=== PATIENT | female | born 1965 | race Caucasian/White ===

== ENCOUNTER 2016-08-04 18:34 | Emergency (ER) | payer OTHER ==
--- NOTE | 2016-08-04 19:58 | DIAGNOSTIC IMAGING REPORT ---
PROCEDURE: XR CHEST 2 VIEW INDICATION: Fever. Cough. History of pulmonary nodules. TECHNIQUE: PA and lateral views. COMPARISON: Compared to chest x-ray and CTA thorax on 02/08/2015. FINDINGS: Findings suggest mild parenchymal changes in the right mid lower lung. Left lung is clear. No definite lung nodules are identified. Heart and mediastinum are normal. Thorax is normal. IMPRESSION: 1. Findings suggest mild parenchymal changes in the right mid lower lung suspicious for pneumonia (e.g., bacterial, Mycoplasma). 2. No definite lung nodules are identified at this time. Nevertheless, early follow-up chest x-ray after the patient's acute illness (3-4 weeks) is recommended to confirm resolution of these changes. 3. Findings discussed with RENAN Lorenzana.
--- NOTE | 2016-08-04 21:04 | ED ORDER SUMMARY ---
..... Patient: MARCI LARSON OrderSheet [facility] VisitID: [id number] [place] [address] 51y, F Registration Date/Time: 08/04/2016 ORDER SHEET Weight: 68.0 kg (stated) Allergies: Erythromycin, Morphine and Related GENERAL ORDERS: Chest 2V Urgent (18:54 08/04/2016 EKoroleva P.A.-C) (Ack 18:56 KHoerner) (19:31 MCampbell) CBC w Diff Urgent (18:55 08/04/2016 EKoroleva P.A.-C) (Ack 18:56 KHoerner) (19:31 DDavis R.N.) BMP Urgent (18:55 08/04/2016 EKoroleva P.A.-C) (Ack 18:56 KHoerner) (19:31 DDavis R.N.) PCT (Procalcitonin) Urgent (18:55 08/04/2016 EKoroleva P.A.-C) (Ack 18:56 KHoerner) (19:31 DDavis R.N.) Lactate, Serum Urgent (18:55 08/04/2016 EKoroleva P.A.-C) (Ack 18:56 KHoerner) (19:31 DDavis R.N.) UA-Culture if indicated Urgent (18:59 08/04/2016 JBoardley R.N. per protocol) (18:59 JBoardley R.N.) Vitals (Repeat) (including temp please) (20:34 08/04/2016 EKoroleva P.A.-C) (20:35 SRedmond) EKG - ER Stat (20:45 08/04/2016 EKoroleva P.A.-C) (20:49 SRedmond) MEDICATION ORDERS: DuoNeb Neb Tx 1 unit dose (NOW) (18:54 08/04/2016 EKoroleva P.A.-C) (Ack 19:13 CHagerty ER Off Premise Service Representative) (19:32 DDavis R.N.) Tylenol PO 650 mg (NOW) (18:54 08/04/2016 EKoroleva P.A.-C) (Ack 18:55 JBoardley R.N.) (18:59 JBoardley R.N.) Levaquin PO 750 mg (NOW) (20:32 08/04/2016 EKoroleva P.A.-C) (20:44 DDavis R.N.) IV FLUIDS: IV NS : initial bolus 1000 mL (1000 mL/hr), then 1000 mL/hr for X1 (NOW); Nitish (18:55 08/04/2016 EKoroleva P.A.-C) (Ack 18:55 JBoardley R.N.) (19:31 DDavis R.N.) IV NS : initial bolus none -, then 1000 mL/hr (NOW); Stat (20:02 08/04/2016 DDavis R.N. verbal order read back to EKoroleva P.A.-C) (20:03 DDavis R.N.) ORDER SHEET NOTES: [Electronically signed by Jerardo Rocha R.N. (21:45 08/04/2016)] [Electronically signed by Jennifer BellAJessica-C (22:03 08/04/2016)] [Electronically locked/signed by Jerardo Rocha R.N. (21:45 08/04/2016)]
--- NOTE | 2016-08-04 21:04 | ED NURSING NOTES ---
Clinical Report - Nurses [facility] [address] [place] [address] 08/04/2016 18:36 Patient: MARCI LARSON TRIAGE Triage time 18:43. Acuity: LEVEL 4. Chief Complaint: FEVER and CHILLS. 18:44 08/04/16. 18:44 08/04/16. Alert. No acute distress. SEPSIS SCREEN: Sepsis Screen. Negative (no infection suspected/documented). STACIE COMA SCORE: [place] Coma Scale: 15- eyes open spontaneously (4); best verbal response- oriented x 4 (5); best motor response- obeys commands (6). --18:48 Samuel Dempsey R.N. 18:43 08/04/16. BP: 107/59. HR: 88. RR: 18. O2 saturation: 91% on room air. Temp: 102.7 F (oral). --18:48 Samuel Dempsey R.N. Acuity: LEVEL 3. --18:49 Samuel Dempsey R.N. Weight: 68 kg stated. Height/Length: 65 inches Per Patient. BMI: 25. --18:44 Samuel Dmepsey R.N. Medications Paxil Oral 40 mg. Percocet Oral 10/325 mg, 4x a day. --18:47 Samuel Dempsey R.N. ClonazePAM Oral (Tablet 1 mg), as needed. --19:04 Samuel Dempsey R.N. Medication/allergy information source: the patient. --18:48 Samuel Dempsey R.N. Allergies Erythromycin. Morphine and Related. --18:47 Samuel Dempsey R.N. History Arrived by private vehicle. Historian: patient. Accompanied by family. Primary physician ([facility]). 18:47 08/04/16. ( 1 week). 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 SOCIAL HX: Current every day heavy tobacco smoker (cigarette)- 1 pack per day. No alcohol use or drug use. No infectious disease exposure. ABUSE ASSESSMENT: No report of abuse. FALL RISK ASSESSMENT: Fall risk assessment completed. No fall risk identified. NUTRITIONAL RISK ASSESSMENT: The nutritional risk assessment revealed no deficiencies. FUNCTIONAL ASSESSMENT: Functional assessment: no impairments noted. LEARNING NEEDS ASSESSMENT: The learning needs assessment revealed no barriers. SKIN INTEGRITY ASSESSMENT: Skin integrity risk assessment completed. No skin integrity risk identified. --18:48 Samuel Dempsey R.N. PAST MEDICAL HX: Immunizations not up to date. --18:48 Samuel Dempsey R.N. PAST MEDICAL HX: The patient has had a hysterectomy. --18:48 Samuel Dempsey R.N. PROBLEMS: Pulmonary Nodule. Chest Wall Pain. Heart Disease. Ovarian Cyst. Abdominal Pain. Depression. Anxiety Reaction. --18:48 Samuel Dempsey R.N. ADDITIONAL SURGERIES: Appendectomy. Hysterectomy. Knee Surgery. --18:48 Samuel Dempsey R.N. Assessment 18:47 08/04/16. --18:48 Samuel Dempsey R.N. Interventions 18:44 08/04/16. 18:47 08/04/16. ID and allergy band on patient. To treatment room. --18:48 Samuel Dempsey R.N. PHYSICAL ASSESSMENT 18:48 08/04/16. Ambulatory to room. GENERAL / NEURO / PSYCH: Alert. Oriented X 4. Appears in pain. RESPIRATORY: Respirations not labored. CVS: Capillary refill less than 2 seconds. SKIN: Skin is diaphoretic. --18:48 Samuel Dempsey R.N. ( skin hot, pt states having cough for 1 week, states having fevers, and having family members with similar symptoms). GENERAL / NEURO / PSYCH: Alert. Oriented X 4. HEENT: Mucous membranes are pink. RESPIRATORY: The patient can speak in full sentences. Expiratory bilateral wheezes diffusely. CVS: Capillary refill less than 2 seconds. SKIN: Skin is dry. --19:34 Jerardo Rocha R.N. ( inspiratory and expiratory rhonchi). --19:34 Jerardo Rocha R.N. 20:41 08/04/16. BP: 94/56 taken on the left arm, via an automated monitor, while sitting. HR: 99 (regular). RR: 20 (regular and unlabored). O2 saturation: 92% on room air. Temp: 98.8 F (axillary). Additional comments: patient discovered to be on room air, someone previously turned O2 off. --20:43 Jerardo Rocha R.N. NURSING PROGRESS NOTES 18:49 08/04/16. The plan of care for this patient has been created. Pulse oximeter and NIBP monitor placed on patient; monitor alarms on. Patient gowned. Head of bed elevated. Reassurance given. Call light placed in reach. Side rails up x 2. Bed placed in lowest position. Brakes of bed on. Patient ready for evaluation- chart flagged. --18:49 Samuel Dempsey R.N. 18:57 08/04/16. Patient ID band checked for patient name and birthdate: patient confirmed. Patient verbalized understanding. Clean catch urine collected with return of yellow-colored clear urine; sample sent to lab for urinalysis. Specimen labeled in the presence of the patient. --18:57 Lillie Oviedo R.N. 18:58 08/04/16. BP: 100/50. HR: 90. RR: 18. O2 saturation: 95% on room air. --18:58 Samuel Dempsey R.N. 18:58 08/04/16. --18:58 Samuel Dempsey R.N. 18:59 08/04/2016 Tylenol (Acetaminophen) PO 650 mg given. Allergies verified and confirmed 5 rights. --18:59 Samuel Dempsey R.N. 18:59 08/04/16. Patient transported to radiology by stretcher with tech. --18:59 Samuel Dempsey R.N. 19:05 08/04/16. ( Pt took 0.5 mg Clonazepam (home med) as pt states she is anxious prior to IV start. Would like to wait 15 min prior to IV start to medication to calm her down.). --19:05 Samuel Dempsey R.N. 19:05 08/04/16. Patient returned from radiology by stretcher with tech. --19:05 Samuel Dempsey R.N. 19:06 08/04/16. Care transferred and report given (Mukesh ELIZABETH). --19:06 Samuel Dempsey R.N. 19:22 08/04/2016 Duoneb (Ipratropium-Albuterol) Neb TX Nebulizer 1 unit dose given. Given by the respiratory therapist. --19:32 Jerardo Rocha R.N. 19:08/04/2016 Site #1 started via IV in the right antecubital space with an 20g angiocath; one attempt. Blood drawn: rainbow set. Labeled in the presence of the patient and sent to the lab. Saline lock flushed with saline. --19:31 Jerardo Rocha R.N. 19:08/04/2016 Started bag #1 1000 mL IV Fluids IV NS (Saline); bolus of 1000 mL wide open via site #1 via IV pump. Allergies verified and confirmed 5 rights. IV patency established. IV site checked: no pain, redness, or swelling. IV flushed thoroughly pre- and post-medication administration. --19:31 Jerardo Rocha R.N. 20:08/04/2016 Started bag #1 1000 mL IV Fluids IV NS (Saline); at 1000 mL/hr over 1 hour(s) via site #1 via IV pump. Allergies verified and confirmed 5 rights. IV patency established. IV site checked: no pain, redness, or swelling. IV flushed thoroughly pre- and post-medication administration. --20:03 Jerardo Rocha R.N. 20:31 08/04/16. BP: 84/47. HR: 108. RR: 12 (regular, unlabored, normal and deep). O2 saturation: 96% on nasal cannula at 3 liters/minute. --20:32 Allen Diaz 20:37 08/04/16. Temp: 99 F (oral). --20:37 Allen Diaz 20:39 08/04/2016 Levaquin (Levofloxacin) PO Tablets 750 mg given. Allergies verified and confirmed 5 rights. --20:44 Jerardo Rocha R.N. EKG time: (2056 PM). EKG was ordered, performed by a tech and shown to the PA. --21:02 Lurdes Reyna 20:39 08/04/2016 IV Fluids IV NS Discontinued: bag #1 completed. Total amount infused: 1000 mL. IV patency established. IV site checked: no pain, redness, or swelling. IV flushed thoroughly. --21:44 Jerardo Rocha R.N. 21:02 08/04/2016 IV Fluids IV NS Discontinued: bag #2 completed. Total amount infused: 1000 mL. --21:45 Jerardo Rocha R.N. DISPOSITION / DISCHARGE Departure time: 21:42. Condition at departure: stable. No learning barriers present. Discharge instructions provided and reviewed with the patient and family. Reviewed warnings. Reviewed medication(s) side effects, precautions, dosing and course information. Prescription(s) given to the patient. Treatments reviewed. Reviewed referrals for followup. Patient and spouse verbalized understanding. Written instructions provided in [place]. The patient was discharged home and accompanied by home health caregiver. She left the Emergency Department ambulatory and via private vehicle. Hospital Carrier driving. --21:42 Jerardo Rocha R.N. 21:41 08/04/16. BP: 99/63. HR: 94. RR: 20 (regular and unlabored). O2 saturation: 94% on room air. Temp: 99.1 F (oral). --21:42 Jerardo Rocha R.N. 21:42 08/04/2016 Site #1 removed upon discharge. Manual pressure and bandaid applied. --21:42 Jerardo Rocha R.N. Locked/Released at 08/04/2016 21:45 by Jerardo Rocha R.N.
--- NOTE | 2016-08-04 21:04 | ED CLINICAL REPORT ---
Clinical Report - Physicians/Mid Levels [facility] [address] [place] [address] 08/04/2016 18:36 Patient: MARCI LARSON Time Seen: 19:03 Aug 04 2016. Arrived- By private vehicle. Historian- patient. HISTORY OF PRESENT ILLNESS Chief Complaint: COUGH and FEVER. This started 7 days and is still present. The patient has had a cough, difficulty breathing, fever and chills. No nasal congestion or sinus pressure. (Patient reports productive cough, weakness, decreased appetite, over the last 7 days worsening. Denies hemoptysis. Denies any recent travel. Some sick contacts around her.). Additional history - The patient has had contact with a sick individual. No recent travel. REVIEW OF SYSTEMS No headache, vomiting, diarrhea or pedal edema. All systems otherwise negative, except as recorded above. PAST HISTORY Problems: Pulmonary Nodule. Chest Wall Pain. Heart Disease. Ovarian Cyst. Abdominal Pain. Depression. Anxiety Reaction. Additional Surgeries: Appendectomy. Hysterectomy. Knee Surgery. Medications: ClonazePAM Oral (Tablet 1 mg), as needed. Paxil Oral 40 mg. Percocet Oral 10/325 mg, 4x a day. Allergies: Erythromycin. Morphine and Related. SOCIAL HISTORY Smoker- current status unknown. No alcohol use or drug use. ADDITIONAL NOTES The nursing notes have been reviewed. PHYSICAL EXAM Vital Signs: 08/04/2016 18:43 BP: 107/59. HR: 88. RR: 18. O2 saturation: 91%. Temp: 102.7 F. Appearance: Alert. Appears to be in pain. Patient in mild distress. ENT: Pharynx normal. Uvula midline. No mouth ulcerations or peritonsillar mass. Neck: Normal inspection. CVS: Normal heart rate and rhythm. Heart sounds normal. Respiratory: Mild rhonchi present in the right lung base. No splinting. Skin: Skin warm. Normal skin color. Neuro: Oriented X 3. LABS, X-RAYS, AND EKG Chest X-ray: (IMPRESSION: 1. Findings suggest mild parenchymal changes in the right mid lower lung suspicious for pneumonia (e.g., bacterial, Mycoplasma). 2. No definite lung nodules are identified at this time. Nevertheless, early follow-up chest x-ray after the patient's acute illness (3-4 weeks) is recommended to confirm resolution of these changes. 3. Findings discussed with RENAN Lorenzana. Electronically Final signed by:Talha Childers MD 08/04/2016 7:55:55 PM). Laboratory Tests: UA-Culture if indicated: (SG: 08/04/2016 18:55) ( [facility] 08/04/2016 19:24) Final results Test Result Flag Units (Reference) URINE COLOR YELLOW URINE APPEARANCE CLEAR URINE GLUCOSE NEGATIVE (NEGATIVE) URINE BILIRUBIN NEGATIVE (NEGATIVE) URINE KETONE NEGATIVE (NEGATIVE) URINE SPECIFIC GRAVITY 1.020 (1.010-1.030) URINE PH 6.0 (5.0-8.0) URINE PROTEIN TRACE (NEGATIVE) URINE UROBILINOGEN 0.2 EU/dL (0.2-1.0) URINE NITRITE NEGATIVE (NEGATIVE) URINE BLOOD TRACE-INTACT (NEGATIVE) URINE LEUK ESTERASE NEGATIVE (NEGATIVE) URINE RBC NONE SEEN rbc/hpf (0-1) URINE WBC 0-1 wbc/hpf (0-1) URINE EPITHELIAL CELLS 1-3 EPI/hpf (0-5) URINE BACTERIA MODERATE (2+ TO 3+) (NONE SEEN) URINE COMMENT CULTURE INDICATED 1+ AMORPHOUSURINE CULTURES ARE SET-UP BASED ON THE FOLLOWING CRITERIA:POSITIVE NITRITEPOSITIVE LEUKOCYTE ESTERASEGREATER THAN 10 WHITE BLOOD CELLSMODERATE (2+) OR GREATER BACTERIA CBC w Diff: (SG: 08/04/2016 19:25) ( [facility] 08/04/2016 19:40) Final results Test Result Flag Units (Reference) WHITE BLOOD COUNT 5.6 K/uL (4.5-11.5) RED BLOOD COUNT 4.27 M/uL (4.00-5.20) HEMOGLOBIN 13.7 gm/dL (12.0-16.0) HEMATOCRIT 39.8 % (36.0-46.0) MEAN CELL VOLUME 93 fL (80-100) MEAN CORPUSCULAR HGB 32 pg (26-34) MEAN CORPUSCULAR HGB CONC 34 g/dL (31-37) RED CELL DISTRIBUTION WIDTH 13.5 % (11.6-14.8) PLATELET COUNT 128 L K/uL (150-400) NEUTROPHIL % 79.1 H % (50-75) LYMPH % 15.5 L % (25-40) MONO % 5.2 % (3-14) EOSINOPHIL % 0 % (0-4) BASOPHIL % 0.2 % (0-2) Lactate, Serum: (SG: 08/04/2016 19:25) ( [facility] 08/04/2016 20:01) Final results Test Result Flag Units (Reference) LACTIC ACID 1.1 mmol/L (0.4-2.0) [id number]: (SG: 08/04/2016 19:25) ( [facility] 08/04/2016 20:10) Final results Test Result Flag Units (Reference) PROCALCITONIN <0.5 ng/mL (0-0.5) PCT Concentration: Interpretation : Risk/option for action PCT <=0.5 ng/mL : Systemic : Low risk forinfection(sepsis): progression to severeis not likely. : systemic infection.Local bacterial : CAUTION-PCT levelsinfection is : below 0.5 ng/mL do notpossible. : exclude an infection,because localizedinfections (withoutsystemic signs) may beassociated with suchlow levels. If PCT ismeasured very earlyafter a bacterialchallenge (usually <6hours), these valuesmay still be low. Inthis case PCT shouldbe re-assessed 6-24hours later. PCT >0.5 and : Systemic infection: Moderate risk for<= 2 ng/mL : (sepsis) is : progression to severepossible, but : systemic infection.other conditions : The patient should beare known to : closely monitoredelevate PCT. : both clinically andby re-assessing PCTwithin 6-24 hours. PCT > 2 ng/mL : Systemic infection: High risk for(sepsis) is likely: progression to severeunless other : systemic infection.causes are known. : PCT >= 10 ng/mL : Important systemic: High likelihood ofinflammatory : severe sepsis orresponse, almost : septic shock.exclusively due to:severe bacterial :sepsis or septic :shock. : BMP: (SG: 08/04/2016 19:25) ( [facility] 08/04/2016 19:51) Final results Test Result Flag Units (Reference) GLUCOSE 113 H mg/dL (70-110) BUN 7 mg/dL (7-18) CREATININE 0.7 mg/dL (0.6-1.3) Estimated GFR >60 mL/min Estimated GFR- >60 mL/min Note: Persistent reduction over 3 months in eGFR<60 mL/min/1.73 m2 defines CKD. Patients with eGFR values>=60 mL/min/1.73 m2 may also have CKD if evidence ofpersistent proteinuria. Additional information may be foundat www.kidney.org. SODIUM 138 mmol/L (136-145) POTASSIUM 3.3 L mmol/L (3.5-5.1) CHLORIDE 103 mmol/L (98-107) CARBON DIOXIDE 27 mmol/L (21-32) CALCIUM 7.8 L mg/dL (8.5-10.1) . PROGRESS AND PROCEDURES Course of Care: Patient here in the ER is febrile, hypotensive, with obvious signs of infection, thus chest x-ray, IV medications were started, as well as IV hydration, antipyretic medications. Patient tolerated such wall, started on antibiotics, concern for acute infiltrate. Sat 94%, normal cardiac, she received 2 L of fluid in the ER, she is a small slender female, I suspect she has chronic hypotension, however now is euvolemic, it may symptomatically while standing. Stable for outpatient management and discharged to home care. Smoking cessation encouraged with patient. 08/04/2016 21:41 BP: 99/63. HR: 94. RR: 20. O2 saturation: 94%. Temp: 99.1 F. Patient is stable. Symptoms better. Patient/family counseled. Disposition: Discharged. CLINICAL IMPRESSION Pneumonia. Vital signs recorded and reviewed; empiric antibiotics given in the ED. Moderate hypocalcemia. INSTRUCTIONS Drink plenty of fluids. Prescription Medications: Albuterol HFA oral inhaler: inhale 1 to 2 puffs every four to six hours as needed for difficulty breathing. Dispense one (1) unit. No refills. Robitussin A-C cough syrup take one (1) teaspoon orally every 6 hours as needed for cough for 3 days. Dispense sixty (60) mL. No refill. Substitution is permissible. Levaquin 750 mg: take 1 tab orally every day. No refills. Substitution is permissible. OTC Medications: Calcium Carbonate chewable tabs 1000 mg (available over the counter): chew and swallow 1 tab every 12 hours for 7 days. No refill. (#14) Follow-up: Follow up with your doctor in three days. (Electronically signed by Jennifer Bell P.A.-C 08/04/2016 22:03)
--- NOTE | 2016-08-04 21:04 | ED CLINICAL REPORT ---
Clinical Report - Physicians/Mid Levels [facility] [address] [place] [place] [address] 08/04/2016 18:36 Patient: MARCI LARSON Time Seen: 19:03 Aug 04 2016. Arrived- By private vehicle. Historian- patient. HISTORY OF PRESENT ILLNESS Chief Complaint: COUGH and FEVER. This started 7 days and is still present. The patient has had a cough, difficulty breathing, fever and chills. No nasal congestion or sinus pressure. (Patient reports productive cough, weakness, decreased appetite, over the last 7 days worsening. Denies hemoptysis. Denies any recent travel. Some sick contacts around her.). Additional history - The patient has had contact with a sick individual. No recent travel. REVIEW OF SYSTEMS No headache, vomiting, diarrhea or pedal edema. All systems otherwise negative, except as recorded above. PAST HISTORY Problems: Pulmonary Nodule. Chest Wall Pain. Heart Disease. Ovarian Cyst. Abdominal Pain. Depression. Anxiety Reaction. Additional Surgeries: Appendectomy. Hysterectomy. Knee Surgery. Medications: ClonazePAM Oral (Tablet 1 mg), as needed. Paxil Oral 40 mg. Percocet Oral 10/325 mg, 4x a day. Allergies: Erythromycin. Morphine and Related. SOCIAL HISTORY Smoker- current status unknown. No alcohol use or drug use. ADDITIONAL NOTES The nursing notes have been reviewed. PHYSICAL EXAM Vital Signs: 08/04/2016 18:43 BP: 107/59. HR: 88. RR: 18. O2 saturation: 91%. Temp: 102.7 F. Appearance: Alert. Appears to be in pain. Patient in mild distress. ENT: Pharynx normal. Uvula midline. No mouth ulcerations or peritonsillar mass. Neck: Normal inspection. CVS: Normal heart rate and rhythm. Heart sounds normal. Respiratory: Mild rhonchi present in the right lung base. No splinting. Skin: Skin warm. Normal skin color. Neuro: Oriented X 3. LABS, X-RAYS, AND EKG Chest X-ray: (IMPRESSION: 1. Findings suggest mild parenchymal changes in the right mid lower lung suspicious for pneumonia (e.g., bacterial, Mycoplasma). 2. No definite lung nodules are identified at this time. Nevertheless, early follow-up chest x-ray after the patient's acute illness (3-4 weeks) is recommended to confirm resolution of these changes. 3. Findings discussed with RENAN Lorenzana. Electronically Final signed by:Talha Childers MD 08/04/2016 7:55:55 PM). Laboratory Tests: UA-Culture if indicated: (SG: 08/04/2016 18:55) ( [facility] 08/04/2016 19:24) Final results Test Result Flag Units (Reference) URINE COLOR YELLOW URINE APPEARANCE CLEAR URINE GLUCOSE NEGATIVE (NEGATIVE) URINE BILIRUBIN NEGATIVE (NEGATIVE) URINE KETONE NEGATIVE (NEGATIVE) URINE SPECIFIC GRAVITY 1.020 (1.010-1.030) URINE PH 6.0 (5.0-8.0) URINE PROTEIN TRACE (NEGATIVE) URINE UROBILINOGEN 0.2 EU/dL (0.2-1.0) URINE NITRITE NEGATIVE (NEGATIVE) URINE BLOOD TRACE-INTACT (NEGATIVE) URINE LEUK ESTERASE NEGATIVE (NEGATIVE) URINE RBC NONE SEEN rbc/hpf (0-1) URINE WBC 0-1 wbc/hpf (0-1) URINE EPITHELIAL CELLS 1-3 EPI/hpf (0-5) URINE BACTERIA MODERATE (2+ TO 3+) (NONE SEEN) URINE COMMENT CULTURE INDICATED 1+ AMORPHOUSURINE CULTURES ARE SET-UP BASED ON THE FOLLOWING CRITERIA:POSITIVE NITRITEPOSITIVE LEUKOCYTE ESTERASEGREATER THAN 10 WHITE BLOOD CELLSMODERATE (2+) OR GREATER BACTERIA CBC w Diff: (SG: 08/04/2016 19:25) ( [facility] 08/04/2016 19:40) Final results Test Result Flag Units (Reference) WHITE BLOOD COUNT 5.6 K/uL (4.5-11.5) RED BLOOD COUNT 4.27 M/uL (4.00-5.20) HEMOGLOBIN 13.7 gm/dL (12.0-16.0) HEMATOCRIT 39.8 % (36.0-46.0) MEAN CELL VOLUME 93 fL (80-100) MEAN CORPUSCULAR HGB 32 pg (26-34) MEAN CORPUSCULAR HGB CONC 34 g/dL (31-37) RED CELL DISTRIBUTION WIDTH 13.5 % (11.6-14.8) PLATELET COUNT 128 L K/uL (150-400) NEUTROPHIL % 79.1 H % (50-75) LYMPH % 15.5 L % (25-40) MONO % 5.2 % (3-14) EOSINOPHIL % 0 % (0-4) BASOPHIL % 0.2 % (0-2) Lactate, Serum: (SG: 08/04/2016 19:25) ( [facility] 08/04/2016 20:01) Final results Test Result Flag Units (Reference) LACTIC ACID 1.1 mmol/L (0.4-2.0) [id number]: (SG: 08/04/2016 19:25) ( [facility] 08/04/2016 20:10) Final results Test Result Flag Units (Reference) PROCALCITONIN <0.5 ng/mL (0-0.5) PCT Concentration: Interpretation : Risk/option for action PCT <=0.5 ng/mL : Systemic : Low risk forinfection(sepsis): progression to severeis not likely. : systemic infection.Local bacterial : CAUTION-PCT levelsinfection is : below 0.5 ng/mL do notpossible. : exclude an infection,because localizedinfections (withoutsystemic signs) may beassociated with suchlow levels. If PCT ismeasured very earlyafter a bacterialchallenge (usually <6hours), these valuesmay still be low. Inthis case PCT shouldbe re-assessed 6-24hours later. PCT >0.5 and : Systemic infection: Moderate risk for<= 2 ng/mL : (sepsis) is : progression to severepossible, but : systemic infection.other conditions : The patient should beare known to : closely monitoredelevate PCT. : both clinically andby re-assessing PCTwithin 6-24 hours. PCT > 2 ng/mL : Systemic infection: High risk for(sepsis) is likely: progression to severeunless other : systemic infection.causes are known. : PCT >= 10 ng/mL : Important systemic: High likelihood ofinflammatory : severe sepsis orresponse, almost : septic shock.exclusively due to:severe bacterial :sepsis or septic :shock. : BMP: (SG: 08/04/2016 19:25) ( [facility] 08/04/2016 19:51) Final results Test Result Flag Units (Reference) GLUCOSE 113 H mg/dL (70-110) BUN 7 mg/dL (7-18) CREATININE 0.7 mg/dL (0.6-1.3) Estimated GFR >60 mL/min Estimated GFR- >60 mL/min Note: Persistent reduction over 3 months in eGFR<60 mL/min/1.73 m2 defines CKD. Patients with eGFR values>=60 mL/min/1.73 m2 may also have CKD if evidence ofpersistent proteinuria. Additional information may be foundat www.kidney.org. SODIUM 138 mmol/L (136-145) POTASSIUM 3.3 L mmol/L (3.5-5.1) CHLORIDE 103 mmol/L (98-107) CARBON DIOXIDE 27 mmol/L (21-32) CALCIUM 7.8 L mg/dL (8.5-10.1) . PROGRESS AND PROCEDURES Course of Care: Patient here in the ER is febrile, hypotensive, with obvious signs of infection, thus chest x-ray, IV medications were started, as well as IV hydration, antipyretic medications. Patient tolerated such wall, started on antibiotics, concern for acute infiltrate. Sat 94%, normal cardiac, she received 2 L of fluid in the ER, she is a small slender female, I suspect she has chronic hypotension, however now is euvolemic, it may symptomatically while standing. Stable for outpatient management and discharged to home care. Smoking cessation encouraged with patient. 08/04/2016 21:41 BP: 99/63. HR: 94. RR: 20. O2 saturation: 94%. Temp: 99.1 F. Patient is stable. Symptoms better. Patient/family counseled. Disposition: Discharged. CLINICAL IMPRESSION Pneumonia. Vital signs recorded and reviewed; empiric antibiotics given in the ED. Moderate hypocalcemia. INSTRUCTIONS Drink plenty of fluids. Prescription Medications: Albuterol HFA oral inhaler: inhale 1 to 2 puffs every four to six hours as needed for difficulty breathing. Dispense one (1) unit. No refills. Robitussin A-C cough syrup take one (1) teaspoon orally every 6 hours as needed for cough for 3 days. Dispense sixty (60) mL. No refill. Substitution is permissible. Levaquin 750 mg: take 1 tab orally every day. No refills. Substitution is permissible. OTC Medications: Calcium Carbonate chewable tabs 1000 mg (available over the counter): chew and swallow 1 tab every 12 hours for 7 days. No refill. (#14) Follow-up: Follow up with your doctor in three days. (Electronically signed by Jennifer Bell P.A.-C 08/04/2016 22:03)
--- NOTE | 2016-08-04 21:04 | ED NURSING NOTES ---
Clinical Report - Nurses [facility] [address] [place] [address] 08/04/2016 18:36 Patient: MARCI LARSON TRIAGE Triage time 18:43. Acuity: LEVEL 4. Chief Complaint: FEVER and CHILLS. 18:44 08/04/16. 18:44 08/04/16. Alert. No acute distress. SEPSIS SCREEN: Sepsis Screen. Negative (no infection suspected/documented). STACIE COMA SCORE: [place] Coma Scale: 15- eyes open spontaneously (4); best verbal response- oriented x 4 (5); best motor response- obeys commands (6). --18:48 Samuel Dempsey R.N. 18:43 08/04/16. BP: 107/59. HR: 88. RR: 18. O2 saturation: 91% on room air. Temp: 102.7 F (oral). --18:48 Samuel Dempsey R.N. Acuity: LEVEL 3. --18:49 Samuel Dempsey R.N. Weight: 68 kg stated. Height/Length: 65 inches Per Patient. BMI: 25. --18:44 Samuel Dempsey R.N. Medications Paxil Oral 40 mg. Percocet Oral 10/325 mg, 4x a day. --18:47 Samuel Dempsey R.N. ClonazePAM Oral (Tablet 1 mg), as needed. --19:04 Samuel Dempsey R.N. Medication/allergy information source: the patient. --18:48 Samuel Dempsey R.N. Allergies Erythromycin. Morphine and Related. --18:47 Samuel Dempsey R.N. History Arrived by private vehicle. Historian: patient. Accompanied by family. Primary physician ([facility]). 18:47 08/04/16. ( 1 week). Treatment SUTURE GAUGER: (Advil-1800, Percocet-10/325 at 1800). SOCIAL HX: Current every day heavy tobacco smoker (cigarette)- 1 pack per day. No alcohol use or drug use. No infectious disease exposure. ABUSE ASSESSMENT: No report of abuse. FALL RISK ASSESSMENT: Fall risk assessment completed. No fall risk identified. NUTRITIONAL RISK ASSESSMENT: The nutritional risk assessment revealed no deficiencies. FUNCTIONAL ASSESSMENT: Functional assessment: no impairments noted. LEARNING NEEDS ASSESSMENT: The learning needs assessment revealed no barriers. SKIN INTEGRITY ASSESSMENT: Skin integrity risk assessment completed. No skin integrity risk identified. --18:48 Samuel Dempsey R.N. PAST MEDICAL HX: Immunizations not up to date. --18:48 Samuel Dempsey R.N. PAST MEDICAL HX: The patient has had a hysterectomy. --18:48 Samuel Dempsey R.N. PROBLEMS: Pulmonary Nodule. Chest Wall Pain. Heart Disease. Ovarian Cyst. Abdominal Pain. Depression. Anxiety Reaction. --18:48 Samuel Dempsey R.N. ADDITIONAL SURGERIES: Appendectomy. Hysterectomy. Knee Surgery. --18:48 Samuel Dempsey R.N. Assessment 18:47 08/04/16. --18:48 Samuel Dempsey R.N. Interventions 18:44 08/04/16. 18:47 08/04/16. ID and allergy band on patient. To treatment room. --18:48 Samuel eDmpsey R.N. PHYSICAL ASSESSMENT 18:48 08/04/16. Ambulatory to room. GENERAL / NEURO / PSYCH: Alert. Oriented X 4. Appears in pain. RESPIRATORY: Respirations not labored. CVS: Capillary refill less than 2 seconds. SKIN: Skin is diaphoretic. --18:48 Samuel Dempsey R.N. ( skin hot, pt states having cough for 1 week, states having fevers, and having family members with similar symptoms). GENERAL / NEURO / PSYCH: Alert. Oriented X 4. HEENT: Mucous membranes are pink. RESPIRATORY: The patient can speak in full sentences. Expiratory bilateral wheezes diffusely. CVS: Capillary refill less than 2 seconds. SKIN: Skin is dry. --19:34 Jerardo Rocha R.N. ( inspiratory and expiratory rhonchi). --19:34 Jerardo Rocha R.N. 20:41 08/04/16. BP: 94/56 taken on the left arm, via an automated monitor, while sitting. HR: 99 (regular). RR: 20 (regular and unlabored). O2 saturation: 92% on room air. Temp: 98.8 F (axillary). Additional comments: patient discovered to be on room air, someone previously turned O2 off. --20:43 Jerardo Rocha R.N. NURSING PROGRESS NOTES 18:49 08/04/16. The plan of care for this patient has been created. Pulse oximeter and NIBP monitor placed on patient; monitor alarms on. Patient gowned. Head of bed elevated. Reassurance given. Call light placed in reach. Side rails up x 2. Bed placed in lowest position. Brakes of bed on. Patient ready for evaluation- chart flagged. --18:49 Samuel Dempsey R.N. 18:57 08/04/16. Patient ID band checked for patient name and birthdate: patient confirmed. Patient verbalized understanding. Clean catch urine collected with return of yellow-colored clear urine; sample sent to lab for urinalysis. Specimen labeled in the presence of the patient. --18:57 Lillie Oviedo R.N. 18:58 08/04/16. BP: 100/50. HR: 90. RR: 18. O2 saturation: 95% on room air. --18:58 Samuel Dempsey R.N. 18:58 08/04/16. --18:58 Samuel Dempsey R.N. 18:59 08/04/2016 Tylenol (Acetaminophen) PO 650 mg given. Allergies verified and confirmed 5 rights. --18:59 Samuel Dempsey R.N. 18:59 08/04/16. Patient transported to radiology by stretcher with tech. --18:59 Samuel Dempsey R.N. 19:05 08/04/16. ( Pt took 0.5 mg Clonazepam (home med) as pt states she is anxious prior to IV start. Would like to wait 15 min prior to IV start to medication to calm her down.). --19:05 Samuel Dempsey R.N. 19:05 08/04/16. Patient returned from radiology by stretcher with tech. --19:05 Samuel Dempsey R.N. 19:06 08/04/16. Care transferred and report given (Mukesh ELIZABETH). --19:06 Samuel Dempsey R.N. 19:22 08/04/2016 Duoneb (Ipratropium-Albuterol) Neb TX Nebulizer 1 unit dose given. Given by the respiratory therapist. --19:32 Jerardo Rocha R.N. 19:08/04/2016 Site #1 started via IV in the right antecubital space with an 20g angiocath; one attempt. Blood drawn: rainbow set. Labeled in the presence of the patient and sent to the lab. Saline lock flushed with saline. --19:31 Jerardo Rocha R.N. 19:08/04/2016 Started bag #1 1000 mL IV Fluids IV NS (Saline); bolus of 1000 mL wide open via site #1 via IV pump. Allergies verified and confirmed 5 rights. IV patency established. IV site checked: no pain, redness, or swelling. IV flushed thoroughly pre- and post-medication administration. --19:31 Jerardo Rocha R.N. 20:08/04/2016 Started bag #1 1000 mL IV Fluids IV NS (Saline); at 1000 mL/hr over 1 hour(s) via site #1 via IV pump. Allergies verified and confirmed 5 rights. IV patency established. IV site checked: no pain, redness, or swelling. IV flushed thoroughly pre- and post-medication administration. --20:03 Jerardo Rocha R.N. 20:31 08/04/16. BP: 84/47. HR: 108. RR: 12 (regular, unlabored, normal and deep). O2 saturation: 96% on nasal cannula at 3 liters/minute. --20:32 Allen Diaz 20:37 08/04/16. Temp: 99 F (oral). --20:37 Allen Diaz 20:39 08/04/2016 Levaquin (Levofloxacin) PO Tablets 750 mg given. Allergies verified and confirmed 5 rights. --20:44 Jerardo Rocha R.N. EKG time: (2056 PM). EKG was ordered, performed by a tech and shown to the PA. --21:02 Lurdes Reyna 20:39 08/04/2016 IV Fluids IV NS Discontinued: bag #1 completed. Total amount infused: 1000 mL. IV patency established. IV site checked: no pain, redness, or swelling. IV flushed thoroughly. --21:44 Jerardo Rocha R.N. 21:02 08/04/2016 IV Fluids IV NS Discontinued: bag #2 completed. Total amount infused: 1000 mL. --21:45 Jerardo Rocha R.N. DISPOSITION / DISCHARGE Departure time: 21:42. Condition at departure: stable. No learning barriers present. Discharge instructions provided and reviewed with the patient and family. Reviewed warnings. Reviewed medication(s) side effects, precautions, dosing and course information. Prescription(s) given to the patient. Treatments reviewed. Reviewed referrals for followup. Patient and spouse verbalized understanding. Written instructions provided in Surinamese. The patient was discharged home and accompanied by ferryboat helper. She left the Emergency Department ambulatory and via private vehicle. Rotor Balancer driving. --21:42 Jerardo Rocha R.N. 21:41 08/04/16. BP: 99/63. HR: 94. RR: 20 (regular and unlabored). O2 saturation: 94% on room air. Temp: 99.1 F (oral). --21:42 Jerardo Rocha R.N. 21:42 08/04/2016 Site #1 removed upon discharge. Manual pressure and bandaid applied. --21:42 Jerardo Rocha R.N. Locked/Released at 08/04/2016 21:45 by Jerardo Rocha R.N.
--- NOTE | 2016-08-04 21:04 | ED ORDER SUMMARY ---
..... Patient: MARCI LARSON [facility]Sheet [facility] VisitID: [id number] [place] [address] 51y, F Registration Date/Time: 08/04/2016 ORDER SHEET Weight: 68.0 kg (stated) Allergies: Erythromycin, Morphine and Related GENERAL ORDERS: Chest 2V Urgent (18:54 08/04/2016 EKoroleva P.A.-C) (Ack 18:56 KHoerner) (19:31 MCampbell) CBC w Diff Urgent (18:55 08/04/2016 EKoroleva P.A.-C) (Ack 18:56 KHoerner) (19:31 DDavis R.N.) BMP Urgent (18:55 08/04/2016 EKoroleva P.A.-C) (Ack 18:56 KHoerner) (19:31 DDavis R.N.) PCT (Procalcitonin) Urgent (18:55 08/04/2016 EKoroleva P.A.-C) (Ack 18:56 KHoerner) (19:31 DDavis R.N.) Lactate, Serum Urgent (18:55 08/04/2016 EKoroleva P.A.-C) (Ack 18:56 KHoerner) (19:31 DDavis R.N.) UA-Culture if indicated Urgent (18:59 08/04/2016 JBoardley R.N. per protocol) (18:59 JBoardley R.N.) Vitals (Repeat) (including temp please) (20:34 08/04/2016 EKoroleva P.A.-C) (20:35 SRedmond) EKG - ER Stat (20:45 08/04/2016 EKoroleva P.A.-C) (20:49 SRedmond) MEDICATION ORDERS: DuoNeb Neb Tx 1 unit dose (NOW) (18:54 08/04/2016 EKoroleva P.A.-C) (Ack 19:13 CHagerty ER Functional Consultant) (19:32 DDavis R.N.) Tylenol PO 650 mg (NOW) (18:54 08/04/2016 EKoroleva P.A.-C) (Ack 18:55 JBoardley R.N.) (18:59 JBoardley R.N.) Levaquin PO 750 mg (NOW) (20:32 08/04/2016 EKoroleva P.A.-C) (20:44 DDavis R.N.) IV FLUIDS: IV NS : initial bolus 1000 mL (1000 mL/hr), then 1000 mL/hr for X1 (NOW); Nitish (18:55 08/04/2016 EKoroleva P.A.-C) (Ack 18:55 JBoardley R.N.) (19:31 DDavis R.N.) IV NS : initial bolus none -, then 1000 mL/hr (NOW); Stat (20:02 08/04/2016 DDavis R.N. verbal order read back to EKoroleva P.A.-C) (20:03 DDavis R.N.) ORDER SHEET NOTES: [Electronically signed by Jerardo Rocha R.N. (21:45 08/04/2016)] [Electronically signed by Jennifer BellAJessica-C (22:03 08/04/2016)] [Electronically locked/signed by Jerardo Rocha R.N. (21:45 08/04/2016)]
--- NOTE | 2016-08-04 22:03 | ED MAR SUMMARY ---
..... Medication Administration Record [facility] [address] [place] [address] Patient: MARCI LARSON Visit ID: [id number] 51y, F Weight: 68.0 kg Height/Length: 65 in BMI: 25 ALLERGIES: Erythromycin, Morphine and Related Given 18:59 08/04/2016 Samuel Dempsey R.N. Medication Administered: TYLENOL [PO] (ACETAMINOPHEN), Dose: 650 mg PO. Medication Ordered: Tylenol PO 650 mg (NOW). Given 19:22 08/04/2016 Jerardo Rocha R.N. Medication Administered: DUONEB [NEB TX] (IPRATROPIUM-ALBUTEROL), Dose: 1 unit dose Nebulizer Neb TX. Medication Ordered: DuoNeb Neb Tx 1 unit dose (NOW). Start 19:26 08/04/2016 Jerardo Rocha R.N., Stop 20:39 08/04/2016 Jerardo Rocha R.N. Medication Administered: IV NS (SALINE), Dose: IV Fluids, Bolus: 1000 mL wide open, Dispensed: 1000 mL bag, Site: #1 right AC. Medication Ordered: IV NS : initial bolus 1000 mL (1000 mL/hr), then 1000 mL/hr for X1 (NOW); Nitish. Start 20:02 08/04/2016 Jerardo Rocha R.N., Stop 21:02 08/04/2016 Jerardo Rocha R.N. Medication Administered: IV NS (SALINE), Dose: IV Fluids over 1 hour(s), Rate: 1000 mL/hr, Dispensed: 1000 mL bag, Site: #1 right AC. Medication Ordered: IV NS : initial bolus none -, then 1000 mL/hr (NOW); Stat. Given 20:39 08/04/2016 Jerardo Rocha R.N. Medication Administered: LEVAQUIN [PO] (LEVOFLOXACIN), Dose: 750 mg Tablets PO. Medication Ordered: Levaquin PO 750 mg (NOW).
--- NOTE | 2016-08-04 22:03 | ED MED RECONCILIATION SUMMARY ---
Patient: MARCI LARSON Medication Reconciliation Report [facility] VisitID: [id number] [place] [address] 51y, F Registration Date/Time: 08/04/2016 Weight: 68.0 kg Height/Length: 65 in. BMI: 25.0 ALLERGIES: Erythromycin, Morphine and Related The patient's Home Medications are listed below: THE FOLLOWING MEDICATIONS NEED TO BE RECONCILED: ClonazePAM Oral (1 mg) Paxil Oral 40 mg Percocet Oral 10/325 mg, 4x a day The source(s) of the original Home Medication information: patient The following Medications were given to the patient in the Emergency Department: Tylenol [PO] PO 650 mg, administered: 08/04/2016 6:59:00 PM IV NS IV Fluids bolus 1000 mL wide open, administered: 08/04/2016 7:26:00 PM Duoneb [Neb Tx] Neb TX 1 unit dose, administered: 08/04/2016 7:22:00 PM IV NS IV Fluids bolus 0, then 1000 mL/hr, administered: 08/04/2016 8:02:00 PM Levaquin [PO] PO 750 mg, administered: 08/04/2016 8:39:00 PM The following Medications were prescribed to the patient: Albuterol HFA oral inhaler: inhale 1 to 2 puffs every four to six hours as needed for difficulty breathing. Dispense one (1) unit. No refills. -- Jennifer Bell, P.A.-Sarai Robitussin A-C cough syrup take one (1) teaspoon orally every 6 hours as needed for cough for 3 days. Dispense sixty (60) mL. No refill. Substitution is permissible. -- Jennifer Bell, P.A.-Sarai Levaquin 750 mg: take 1 tab orally every day. No refills. Substitution is permissible. -- Jennifer Bell P.A.-Sarai Calcium Carbonate chewable tabs 1000 mg (available over the counter): chew and swallow 1 tab every 12 hours for 7 days. No refill.(#14) -- Jennifer Bell P.A.-Sarai
--- NOTE | 2016-08-04 22:03 | ED DISCHARGE INSTRUCTIONS ---
Patient: MARCI LARSON General Instructions [facility] VisitID: [id number] [place] [address] 51y, F Registration Date/Time: 08/04/2016 Pneumonia. Vital signs recorded and reviewed; empiric antibiotics given in the ED. Moderate hypocalcemia. INSTRUCTIONS Drink plenty of fluids. Prescription Medications: Albuterol HFA oral inhaler: inhale 1 to 2 puffs every four to six hours as needed for difficulty breathing. Dispense one (1) unit. No refills. Robitussin A-C cough syrup take one (1) teaspoon orally every 6 hours as needed for cough for 3 days. Dispense sixty (60) mL. No refill. Substitution is permissible. Levaquin 750 mg: take 1 tab orally every day. No refills. Substitution is permissible. OTC Medications: Calcium Carbonate chewable tabs 1000 mg (available over the counter): chew and swallow 1 tab every 12 hours for 7 days. No refill. (#14) Follow-up: Follow up with your doctor in three days. ADDITIONAL INFORMATION Pneumonia (Adult) Pneumonia is an infection deep within the lung, in the small air sacs (alveoli). It may be due to a virus or bacteria and is usually treated with an antibiotic. Severe cases require treatment in the hospital. Milder cases can be treated at home. Symptoms usually start to improve during the first2 days of treatment. Home Care: Rest at home for the first 23 days or until you feel stronger. When resuming activity, dont let yourself become overly tired. Avoid exposure to cigarette smoke (yours or others). You may use acetaminophen (Tylenol) or ibuprofen (Motrin, Advil) to control fever or pain, unless another medicine was prescribed. [NOTE: If you have chronic liver or kidney disease or ever had a stomach ulcer or GI bleeding, talk with your doctor before using these medicines.] (Aspirin should never be used in anyone under 18 years of age who is ill with a fever. It may cause severe liver damage.) Your appetite may be poor so a light diet is fine. Keep well hydrated by drinking 68 glasses of fluids per day (water, sport drinks such as Gatorade, sodas without caffeine, juices, tea, soup, etc.). This will help loosen secretions in the lung, making it easier for you to cough up the phlegm (sputum). If you also have heart or kidney disease, check with your doctor before you drink extra amounts of fluids. Finish all antibiotic medicine prescribed, even if you are feeling better after a few days. Follow Up with your doctor in the next 23 days (or as advised) to be sure you are responding properly to the medicine. [NOTE: If you are age 65 or older, or if you have chronic lung disease (asthma, emphysema or COPD), we recommendthe pneumococcal vaccination and a yearlyinfluenzavaccination(flu-shot) every . Ask your doctor about this.] Get Prompt Medical Attention if any of the following occur: Not getting better within the first 48 hours of treatment Increasing shortness of breath or rapid breathing (over 25 breaths/minute) Coughing up blood or increasing chest pain with breathing Fever of 100.4F (38C) oral or higher, not better with fever medication Increasing weakness, dizziness or fainting Increasing thirst or dry mouth Sinus pain, headache or a stiff neck Chest pain not caused by coughing Levofloxacin Oral tablet What is this medicine? LEVOFLOXACIN (buffy menjivar) is a quinolone antibiotic. It is used to treat certain kinds of bacterial infections. It will not work for colds, flu, or other viral infections. How should I use this medicine? Take this medicine by mouth with a full glass of water. Follow the directions on the prescription label. This medicine can be taken with or without food. Take your medicine at regular intervals. Do not take your medicine more often than directed. Do not skip doses or stop your medicine early even if you feel better. Do not stop taking except on your doctor's advice. A special MedGuide will be given to you by the pharmacist with each prescription and refill. Be sure to read this information carefully each time. Talk to your maintenance foreman regarding the use of this medicine in children. While this drug may be prescribed for children as young as 6 months for selected conditions, precautions do apply. What side effects may I notice from receiving this medicine? Side effects that you should report to your doctor or health lpn care manager as soon as possible: -allergic reactions like skin rash or hives, swelling of the face, lips, or tongue -changes in vision -confusion, nightmares or hallucinations -difficulty breathing -irregular heartbeat, chest pain -joint, muscle or tendon pain -pain or difficulty passing urine -persistent headache with or without blurred vision -redness, blistering, peeling or loosening of the skin, including inside the mouth -seizures -unusual pain, numbness, tingling, or weakness -vaginal irritation, discharge Side effects that usually do not require medical attention (report to your doctor or health lpn care manager if they continue or are bothersome): -diarrhea -dry mouth -headache -stomach upset, nausea -trouble sleeping What may interact with this medicine? Do not take this medicine with any of the following medications: - arsenic trioxide - chloroquine - droperidol - medicines for irregular heart rhythm like amiodarone, disopyramide, dofetilide, flecainide, quinidine, procainamide, sotalol - some medicines for depression or mental problems like phenothiazines, pimozide, and ziprasidone This medicine may also interact with the following medications: - amoxapine -antacids - cisapride - dairy products - didanosine (ddI) buffered tablets or powder - haloperidol - multivitamins -NSAIDS, medicines for pain and inflammation, like ibuprofen or naproxen - retinoid products like tretinoin or isotretinoin - risperidone - some other antibiotics like clarithromycin or erythromycin - sucralfate - theophylline - warfarin What if I miss a dose? If you miss a dose, take it as soon as you remember. If it is almost time for your next dose, take only that dose. Do not take double or extra doses. Where should I keep my medicine? Keep out of the reach of children. Store at room temperature between 15 and 30 degrees C (59 and 86 degrees F). Keep in a tightly closed container. Throw away any unused medicine after the expiration date. What should I tell my health care provider before I take this medicine? They need to know if you have any of these conditions: cerebral disease irregular heartbeat kidney disease seizure disorder an unusual or allergic reaction to levofloxacin, other antibiotics or medicines, foods, dyes, or preservatives or trying to get breast-feeding What should I watch for while using this medicine? Tell your doctor or health lpn care manager if your symptoms do not improve or if they get worse. Drink several glasses of water a day and cut down on drinks that contain caffeine. You must not get dehydrated while taking this medicine. You may get drowsy or dizzy. Do not drive, use machinery, or do anything that needs mental alertness until you know how this medicine affects you. Do not sit or stand up quickly, especially if you are an older patient. This reduces the risk of dizzy or fainting spells. This medicine can make you more sensitive to the sun. Keep out of the sun. If you cannot avoid being in the sun, wear protective clothing and use a sunscreen. Do not use sun lamps or tanning beds/booths. Contact your doctor if you get a sunburn. If you are a diabetic monitor your blood glucose carefully. If you get an unusual reading stop taking this medicine and call your doctor right away. Do not treat diarrhea with [id number] products. Contact your doctor if you have diarrhea that lasts more than 2 days or if the diarrhea is severe and watery. Avoid antacids, calcium, iron, and zinc products for 2 hours before and 2 hours after taking a dose of this medicine. Calcium Carbonate Oral tablet What is this medicine? CALCIUM CARBONATE (LISE see um OTTO bon ate) is a calcium salt. It is used as an antacid to relieve the symptoms of indigestion and heartburn. It is also used to prevent osteoporosis, as a calcium supplement, and to treat high phosphate levels in patients with kidney disease. How should I use this medicine? Take this medicine by mouth with a glass of water. Follow the directions on the label. Antacids are usually taken after meals and at bedtime, or as directed by your doctor or health lpn care manager. Take your medicine at regular intervals. Do not take your medicine more often than directed. Talk to your maintenance foreman regarding the use of this medicine in children. While this medicine may be used in children for selected conditions, precautions do apply. What side effects may I notice from receiving this medicine? Side effects that you should report to your doctor or health lpn care manager as soon as possible: allergic reactions like skin rash, itching or hives, swelling of the face, lips, or tongue confusion or irritability headache loss of appetite nausea, vomiting unusually weak or tired Side effects that usually do not require medical attention (report to your doctor or health lpn care manager if they continue or are bothersome): constipation stomach gas What may interact with this medicine? Do not take this medicine with any of the following medications: ammonium chloride methenamine This medicine may also interact with the following medications: antibiotics like ciprofloxacin, tetracycline captopril delavirdine gabapentin iron supplements medicines for fungal infections like ketoconazole and itraconazole medicines for seizures like ethotoin and phenytoin mycophenolate quinidine rosuvastatin sucralfate thyroid medicine What if I miss a dose? If you miss a dose, take it as soon as you can. If it is almost time for your next dose, take only that dose. Do not take double or extra doses. Where should I keep my medicine? Keep out of the reach of children. Store at room temperature between 15 and 30 degrees C (59 and 86 degrees F). Throw away any unused medicine after the expiration date. What should I tell my health care provider before I take this medicine? They need to know if you have any of these conditions: constipation dehydration high blood calcium levels kidney disease stomach bleeding, obstruction or ulcer an unusual or allergic reaction to calcium carbonate, other medicines, foods, dyes, or preservatives or trying to get breast-feeding What should I watch for while using this medicine? Tell your doctor or healthcare professional if your symptoms do not start to get better or if they get worse. Do not treat yourself for stomach problems with this medicine for more than 2 weeks. See a doctor if you have black tarry stools, rectal bleeding, or if you feel unusually tired. Do not change to another antacid product without advice. If you are taking other medicines, leave an interval of at least 2 hours before or after taking this medicine. To help reduce constipation, drink several glasses of water a day. You have been given the following additional information: Pneumonia (Adult) Levofloxacin Oral tablet Calcium Carbonate Oral tablet (Electronically signed by Jennifer Bell P.A.-C 08/04/2016 22:03)
--- NOTE | 2016-08-04 22:03 | ED MED RECONCILIATION SUMMARY ---
Patient: MARCI LARSON Medication Reconciliation Report [facility] VisitID: [id number] [place] [address] 51y, F Registration Date/Time: 08/04/2016 Weight: 68.0 kg Height/Length: 65 in. BMI: 25.0 ALLERGIES: Erythromycin, Morphine and Related The patient's Home Medications are listed below: THE FOLLOWING MEDICATIONS NEED TO BE RECONCILED: ClonazePAM Oral (1 mg) Paxil Oral 40 mg Percocet Oral 10/325 mg, 4x a day The source(s) of the original Home Medication information: patient The following Medications were given to the patient in the Emergency Department: Tylenol [PO] PO 650 mg, administered: 08/04/2016 6:59:00 PM IV NS IV Fluids bolus 1000 mL wide open, administered: 08/04/2016 7:26:00 PM Duoneb [Neb Tx] Neb TX 1 unit dose, administered: 08/04/2016 7:22:00 PM IV NS IV Fluids bolus 0, then 1000 mL/hr, administered: 08/04/2016 8:02:00 PM Levaquin [PO] PO 750 mg, administered: 08/04/2016 8:39:00 PM The following Medications were prescribed to the patient: Albuterol HFA oral inhaler: inhale 1 to 2 puffs every four to six hours as needed for difficulty breathing. Dispense one (1) unit. No refills. -- Jennifer Bell, P.A.-Sarai Robitussin A-C cough syrup take one (1) teaspoon orally every 6 hours as needed for cough for 3 days. Dispense sixty (60) mL. No refill. Substitution is permissible. -- Jennifer Bell, P.A.-Sarai Levaquin 750 mg: take 1 tab orally every day. No refills. Substitution is permissible. -- Jennifer Bell P.A.-Sarai Calcium Carbonate chewable tabs 1000 mg (available over the counter): chew and swallow 1 tab every 12 hours for 7 days. No refill.(#14) -- Jennifer Bell P.A.-Sarai
--- NOTE | 2016-08-04 22:03 | ED MAR SUMMARY ---
..... Medication Administration Record [facility] [address] [place] [address] Patient: MARCI LARSON Visit ID: [id number] 51y, F Weight: 68.0 kg Height/Length: 65 in BMI: 25 ALLERGIES: Erythromycin, Morphine and Related Given 18:59 08/04/2016 Samuel Dempsey R.N. Medication Administered: TYLENOL [PO] (ACETAMINOPHEN), Dose: 650 mg PO. Medication Ordered: Tylenol PO 650 mg (NOW). Given 19:22 08/04/2016 Jerardo Rocha R.N. Medication Administered: DUONEB [NEB TX] (IPRATROPIUM-ALBUTEROL), Dose: 1 unit dose Nebulizer Neb TX. Medication Ordered: DuoNeb Neb Tx 1 unit dose (NOW). Start 19:26 08/04/2016 Jerardo Rocha R.N., Stop 20:39 08/04/2016 Jerardo Rocha R.N. Medication Administered: IV NS (SALINE), Dose: IV Fluids, Bolus: 1000 mL wide open, Dispensed: 1000 mL bag, Site: #1 right AC. Medication Ordered: IV NS : initial bolus 1000 mL (1000 mL/hr), then 1000 mL/hr for X1 (NOW); Nitish. Start 20:02 08/04/2016 Jerardo Rocha R.N., Stop 21:02 08/04/2016 Jerardo Rocha R.N. Medication Administered: IV NS (SALINE), Dose: IV Fluids over 1 hour(s), Rate: 1000 mL/hr, Dispensed: 1000 mL bag, Site: #1 right AC. Medication Ordered: IV NS : initial bolus none -, then 1000 mL/hr (NOW); Stat. Given 20:39 08/04/2016 Jerardo Rocha R.N. Medication Administered: LEVAQUIN [PO] (LEVOFLOXACIN), Dose: 750 mg Tablets PO. Medication Ordered: Levaquin PO 750 mg (NOW).
--- NOTE | 2016-08-04 22:03 | ED DISCHARGE INSTRUCTIONS ---
Patient: MARCI LARSON General Instructions [facility] VisitID: [id number] [place] [address] 51y, F Registration Date/Time: 08/04/2016 Pneumonia. Vital signs recorded and reviewed; empiric antibiotics given in the ED. Moderate hypocalcemia. INSTRUCTIONS Drink plenty of fluids. Prescription Medications: Albuterol HFA oral inhaler: inhale 1 to 2 puffs every four to six hours as needed for difficulty breathing. Dispense one (1) unit. No refills. Robitussin A-C cough syrup take one (1) teaspoon orally every 6 hours as needed for cough for 3 days. Dispense sixty (60) mL. No refill. Substitution is permissible. Levaquin 750 mg: take 1 tab orally every day. No refills. Substitution is permissible. OTC Medications: Calcium Carbonate chewable tabs 1000 mg (available over the counter): chew and swallow 1 tab every 12 hours for 7 days. No refill. (#14) Follow-up: Follow up with your doctor in three days. ADDITIONAL INFORMATION Pneumonia (Adult) Pneumonia is an infection deep within the lung, in the small air sacs (alveoli). It may be due to a virus or bacteria and is usually treated with an antibiotic. Severe cases require treatment in the hospital. Milder cases can be treated at home. Symptoms usually start to improve during the first2 days of treatment. Home Care: Rest at home for the first 23 days or until you feel stronger. When resuming activity, dont let yourself become overly tired. Avoid exposure to cigarette smoke (yours or others). You may use acetaminophen (Tylenol) or ibuprofen (Motrin, Advil) to control fever or pain, unless another medicine was prescribed. [NOTE: If you have chronic liver or kidney disease or ever had a stomach ulcer or GI bleeding, talk with your doctor before using these medicines.] (Aspirin should never be used in anyone under 18 years of age who is ill with a fever. It may cause severe liver damage.) Your appetite may be poor so a light diet is fine. Keep well hydrated by drinking 68 glasses of fluids per day (water, sport drinks such as Gatorade, sodas without caffeine, juices, tea, soup, etc.). This will help loosen secretions in the lung, making it easier for you to cough up the phlegm (sputum). If you also have heart or kidney disease, check with your doctor before you drink extra amounts of fluids. Finish all antibiotic medicine prescribed, even if you are feeling better after a few days. Follow Up with your doctor in the next 23 days (or as advised) to be sure you are responding properly to the medicine. [NOTE: If you are age 65 or older, or if you have chronic lung disease (asthma, emphysema or COPD), we recommendthe pneumococcal vaccination and a yearlyinfluenzavaccination(flu-shot) every . Ask your doctor about this.] Get Prompt Medical Attention if any of the following occur: Not getting better within the first 48 hours of treatment Increasing shortness of breath or rapid breathing (over 25 breaths/minute) Coughing up blood or increasing chest pain with breathing Fever of 100.4F (38C) oral or higher, not better with fever medication Increasing weakness, dizziness or fainting Increasing thirst or dry mouth Sinus pain, headache or a stiff neck Chest pain not caused by coughing Levofloxacin Oral tablet What is this medicine? LEVOFLOXACIN (buffy menjivar) is a quinolone antibiotic. It is used to treat certain kinds of bacterial infections. It will not work for colds, flu, or other viral infections. How should I use this medicine? Take this medicine by mouth with a full glass of water. Follow the directions on the prescription label. This medicine can be taken with or without food. Take your medicine at regular intervals. Do not take your medicine more often than directed. Do not skip doses or stop your medicine early even if you feel better. Do not stop taking except on your doctor's advice. A special MedGuide will be given to you by the pharmacist with each prescription and refill. Be sure to read this information carefully each time. Talk to your dural mechanic regarding the use of this medicine in children. While this drug may be prescribed for children as young as 6 months for selected conditions, precautions do apply. What side effects may I notice from receiving this medicine? Side effects that you should report to your doctor or health career development associate as soon as possible: -allergic reactions like skin rash or hives, swelling of the face, lips, or tongue -changes in vision -confusion, nightmares or hallucinations -difficulty breathing -irregular heartbeat, chest pain -joint, muscle or tendon pain -pain or difficulty passing urine -persistent headache with or without blurred vision -redness, blistering, peeling or loosening of the skin, including inside the mouth -seizures -unusual pain, numbness, tingling, or weakness -vaginal irritation, discharge Side effects that usually do not require medical attention (report to your doctor or health career development associate if they continue or are bothersome): -diarrhea -dry mouth -headache -stomach upset, nausea -trouble sleeping What may interact with this medicine? Do not take this medicine with any of the following medications: - arsenic trioxide - chloroquine - droperidol - medicines for irregular heart rhythm like amiodarone, disopyramide, dofetilide, flecainide, quinidine, procainamide, sotalol - some medicines for depression or mental problems like phenothiazines, pimozide, and ziprasidone This medicine may also interact with the following medications: - amoxapine -antacids - cisapride - dairy products - didanosine (ddI) buffered tablets or powder - haloperidol - multivitamins -NSAIDS, medicines for pain and inflammation, like ibuprofen or naproxen - retinoid products like tretinoin or isotretinoin - risperidone - some other antibiotics like clarithromycin or erythromycin - sucralfate - theophylline - warfarin What if I miss a dose? If you miss a dose, take it as soon as you remember. If it is almost time for your next dose, take only that dose. Do not take double or extra doses. Where should I keep my medicine? Keep out of the reach of children. Store at room temperature between 15 and 30 degrees C (59 and 86 degrees F). Keep in a tightly closed container. Throw away any unused medicine after the expiration date. What should I tell my health care provider before I take this medicine? They need to know if you have any of these conditions: cerebral disease irregular heartbeat kidney disease seizure disorder an unusual or allergic reaction to levofloxacin, other antibiotics or medicines, foods, dyes, or preservatives or trying to get breast-feeding What should I watch for while using this medicine? Tell your doctor or health career development associate if your symptoms do not improve or if they get worse. Drink several glasses of water a day and cut down on drinks that contain caffeine. You must not get dehydrated while taking this medicine. You may get drowsy or dizzy. Do not drive, use machinery, or do anything that needs mental alertness until you know how this medicine affects you. Do not sit or stand up quickly, especially if you are an older patient. This reduces the risk of dizzy or fainting spells. This medicine can make you more sensitive to the sun. Keep out of the sun. If you cannot avoid being in the sun, wear protective clothing and use a sunscreen. Do not use sun lamps or tanning beds/booths. Contact your doctor if you get a sunburn. If you are a diabetic monitor your blood glucose carefully. If you get an unusual reading stop taking this medicine and call your doctor right away. Do not treat diarrhea with [id number] products. Contact your doctor if you have diarrhea that lasts more than 2 days or if the diarrhea is severe and watery. Avoid antacids, calcium, iron, and zinc products for 2 hours before and 2 hours after taking a dose of this medicine. Calcium Carbonate Oral tablet What is this medicine? CALCIUM CARBONATE (LISE see um OTTO bon ate) is a calcium salt. It is used as an antacid to relieve the symptoms of indigestion and heartburn. It is also used to prevent osteoporosis, as a calcium supplement, and to treat high phosphate levels in patients with kidney disease. How should I use this medicine? Take this medicine by mouth with a glass of water. Follow the directions on the label. Antacids are usually taken after meals and at bedtime, or as directed by your doctor or health career development associate. Take your medicine at regular intervals. Do not take your medicine more often than directed. Talk to your dural mechanic regarding the use of this medicine in children. While this medicine may be used in children for selected conditions, precautions do apply. What side effects may I notice from receiving this medicine? Side effects that you should report to your doctor or health career development associate as soon as possible: allergic reactions like skin rash, itching or hives, swelling of the face, lips, or tongue confusion or irritability headache loss of appetite nausea, vomiting unusually weak or tired Side effects that usually do not require medical attention (report to your doctor or health career development associate if they continue or are bothersome): constipation stomach gas What may interact with this medicine? Do not take this medicine with any of the following medications: ammonium chloride methenamine This medicine may also interact with the following medications: antibiotics like ciprofloxacin, tetracycline captopril delavirdine gabapentin iron supplements medicines for fungal infections like ketoconazole and itraconazole medicines for seizures like ethotoin and phenytoin mycophenolate quinidine rosuvastatin sucralfate thyroid medicine What if I miss a dose? If you miss a dose, take it as soon as you can. If it is almost time for your next dose, take only that dose. Do not take double or extra doses. Where should I keep my medicine? Keep out of the reach of children. Store at room temperature between 15 and 30 degrees C (59 and 86 degrees F). Throw away any unused medicine after the expiration date. What should I tell my health care provider before I take this medicine? They need to know if you have any of these conditions: constipation dehydration high blood calcium levels kidney disease stomach bleeding, obstruction or ulcer an unusual or allergic reaction to calcium carbonate, other medicines, foods, dyes, or preservatives or trying to get breast-feeding What should I watch for while using this medicine? Tell your doctor or healthcare professional if your symptoms do not start to get better or if they get worse. Do not treat yourself for stomach problems with this medicine for more than 2 weeks. See a doctor if you have black tarry stools, rectal bleeding, or if you feel unusually tired. Do not change to another antacid product without advice. If you are taking other medicines, leave an interval of at least 2 hours before or after taking this medicine. To help reduce constipation, drink several glasses of water a day. You have been given the following additional information: Pneumonia (Adult) Levofloxacin Oral tablet Calcium Carbonate Oral tablet (Electronically signed by Jennifer Bell P.A.-C 08/04/2016 22:03)
== END 2016-08-04 21:45 | disposition home or self-care (01) ==
LOC: ED SRH 18:34
DX: J18.9 Pneumonia, unspecified organism (principal); E83.51 Hypocalcemia; I51.9 Heart disease, unspecified; Z79.899 Other long term (current) drug therapy; Z88.5 Allergy status to narcotic agent; Z88.1 Allergy status to other antibiotic agents; Z90.710 Acquired absence of both cervix and uterus
CPT/HCPCS: 90004; 90047; 90469; 92031; 93004; 95059